=== PATIENT | male | born 1975 | race Caucasian/White ===

== ENCOUNTER → 2025-06-06 | Outpatient (CLI) | payer OTHER ==
[2025-06-06 14:27] LABS: HEMATOCRIT(ML) 52.2 % (37.0-53.0); MEAN CORP HGB 32.7 pg (26-34); MEAN CORP HGB CONCENTRATION 35.8 g/dL (33-36.5); MEAN CORP VOLUME 91.4 fL (78-100); RED BLOOD CELL 5.71 10^6/uL (4.50-5.90); RED CELL DISTRIBUTION WIDTH 12.5 % (11.5-14.5); WHITE BLOOD CELL 7.0 10^3/uL (4.5-11.0)
[2025-06-06 14:32] LABS: LEUKOCYTE ESTERASE ,URINE NEGATIVE (NEGATIVE); NITRATE,URINE NEGATIVE (NEGATIVE)
[2025-06-06 14:33] LABS: APPEARANCE,URINE CLEAR; UA COLOR YELLOW
[2025-06-06 15:06] LABS: ALBUMIN(ML) 4.0 g/dL (3.4-5.0); CREATININE SERUM 1.62 mg/dL (0.59-1.40); EST GFR, NON-AA 45.7 (>/=60)
== END | disposition home or self-care (01) ==
LOC: LAB 13:58
PROVIDERS: ATTEND Internal Medicine Nephrology
DX: I12.9 Hypertensive chronic kidney disease with stage 1 through stage 4 chronic kidney disease, or unspecified chronic kidney disease (principal); N18.30 Chronic kidney disease, stage 3 unspecified
CPT/HCPCS: 36415; 80069; 81003; 82043; 82306; 82570; 83735; 83970; 84550; 85027